=== PATIENT | male | born 1975 | race Caucasian/White ===

== ENCOUNTER 2017-11-05 11:55 | Emergency (ER) | payer MEDICAID, OTHER ==
[2017-11-05 12:11] VITALS: BP 134/82; PULSE 70; RESP 16; TEMP 97.7; O2SAT 99
--- NOTE | 2017-11-05 13:33 | C.PDOC ---
History Of Present Illness 42 y/o M c no PMHx p/w cough, congestion, loose stool, subjective fever. Denies dyspnea, vomiting, recent travel, rash. Patient also notes R foot rash inbetween toes that itches significantly x 3 months. Denies injury, trauma, fever before, numbness, or weakness. Time Seen by Provider: 11/05/17 12:29 Chief Complaint (Nursing): Flu-like Symptoms Past Medical History Vital Signs: Last Vital Signs Temp 97.7 F 11/05/17 12:07 Pulse 70 11/05/17 12:07 Resp 16 11/05/17 12:07 BP 134/82 11/05/17 12:07 Pulse Ox 99 11/05/17 12:07 - Medical History PMH: Fractures (fingers) - [facility] Procedures APPLICATION OF SPLINT (06/04/14) Family History: States: Unknown Family Hx - Social History Hx Tobacco Use: Yes Hx Alcohol Use: No Hx Substance Use: No - Immunization History Hx Tetanus Toxoid Vaccination: No Hx Influenza Vaccination: No Hx Pneumococcal Vaccination: No Review Of Systems Except As Marked, All Systems Reviewed And Found Negative. Cardiovascular: Negative for: Chest Pain Gastrointestinal: Negative for: Vomiting Physical Exam - Physical Exam Additional Physical Exam Comments: Gen: NAD Head: NC Eyes: No scleral icterus ENT: MMM, no pharyngeal erythema or exudates. Neck: No rigidity, FROM Chest: No tenderness CV: Mild tachycardia Lungs: CTA b/l Abd: Soft, NT Back: No CVA tenderness Ext: No swelling Skin: R foot with white/red discoloration between digits of toes, nontender. Neuro: Alert, no focal deficit ED Course And Treatment O2 Sat by Pulse Oximetry: 99 Medical Decision Making Medical Decision Making: Continue oral fluids, tamiflu, ibuprofen, clotrimazole for tinea pedis. F/u PMD for re-evaluation. Disposition - Disposition Referrals: [facility] at [facility] [Outside] Disposition: HOME/ ROUTINE Disposition Time: 13:34 Condition: STABLE Prescriptions: Clotrimazole 1% Cream [Lotrimin 1%] 30 applic TOP BID #1 tube Ibuprofen [Motrin] 1 tab PO Q6 #30 tab Oseltamivir Phosphate [Tamiflu] 1 cap PO BID #9 capsule Instructions: Athlete's Foot (DC), Viral Upper Respiratory Infection, Adult (DC ) Forms: [employer] (Welsh), Work Excuse - Clinical Impression Clinical Impression: URI (upper respiratory infection), Tinea pedis
== END 2017-11-05 13:51 | disposition home or self-care (01) ==
LOC: C.ER 11:55
DX: J06.9 Acute upper respiratory infection, unspecified (principal); B35.3 Tinea pedis
CPT/HCPCS: 96372; 99283; J1885